=== PATIENT | female | born 1965 | race Caucasian/White ===

== ENCOUNTER → 2019-05-24 13:09 | Outpatient (CLI) | payer BC, SELFPAY ==
[2019-05-28 16:19] LABS: HPV APTIMA, High Risk Negative (Negative)
[2019-05-28 16:20] LABS: HPV Reflexed? YES, CHARGE PATIENT
== END ==
PROVIDERS: Visit Provider Obstetrics & Gynecology
DX: Z12.4 Encounter for screening for malignant neoplasm of cervix (principal)
CPT/HCPCS: 87624; 88175; G0145

== ENCOUNTER → 2019-06-01 09:47 | Outpatient (CLI) | payer BC, SELFPAY ==
[2019-06-01 12:42] LABS: Anion Gap 1 (5-15); BUN 12 mg/dL (7-18); BUN/Creat Ratio 12.9 RATIO (10-20); Calcium,Total 8.7 mg/dL (8.5-10.1); Chloride 106 mmol/L (98-107); Cholesterol 223 mg/dL (200); Creatinine, Serum 0.93 mg/dL (0.55-1.02); EST Glomerular Filtration Rate 67 mL/min (>60); Est Glom Filt Rate - Afr Amer 82 mL/min (>60); Glucose 89 mg/dL (74-106); High Density Lipoprotein 51 mg/dL; Potassium 3.8 mmol/L (3.5-5.1); Sodium Level 140 mmol/L (136-145); Triglycerides 207 mg/dL; Very Low Density Lipoprotein 41 mg/dL (5-40)
== END ==
PROVIDERS: Family Provider Family Medicine; PCP Family Medicine; Referring Provider Family Medicine; Visit Provider Family Medicine
DX: R03.0 Elevated blood-pressure reading, without diagnosis of hypertension (principal)
CPT/HCPCS: 36415; 80048; 80061

== ENCOUNTER → 2019-06-14 13:24 | Outpatient (CLI) | payer BC, SELFPAY ==
--- NOTE | 2019-06-14 13:29 | BI_ITS ---
MAMMOGRAPHY - BILATERAL SCREENING 3-D TOMOSYNTHESIS REASON FOR EXAM: Female, 53 years old. Routine annual screening mammogram. PERTINENT HISTORY: Family history of breast cancer in maternal grandmother at age 75 and great maternal grandmother at age 50. TECHNIQUE: 2-D mammograms and 3-D Tomosynthesis of the breast (s) were performed. CAD was performed. COMPARISON: November 18, 2015, July 21, 2012 FINDINGS: The breast composition is composed of scattered fibroglandular density. Scattered benign calcifications are seen. No dense spiculated masses or suspicious microcalcifications are identified. No architectural distortion is identified. There is no skin thickening or retraction. Stable lymph nodes. There has been no significant change since the prior study. BI/SCREEN MAMM (CAD) W/ELZBIETA BILAT IMPRESSION: No mammographic signs of malignancy. Routine yearly mammograms recommended. ASSESSMENT CATEGORY: BIRADS Category 2: Benign. A letter regarding these results will be sent to the patient by the facility within 30 days. FOLLOW UP RECOMMENDATION: Yearly follow up mammogram recommended. (A) Approximately 10% of breast cancers are not detected by mammography. A normal mammogram should not delay biopsy of a clinically suspicious abnormality. Electronically Signed: Celso Chapman MD at 15:53 EST , Service support ,
== END ==
PROVIDERS: Family Provider Family Medicine; PCP Family Medicine; Referring Provider Obstetrics & Gynecology; Visit Provider Obstetrics & Gynecology
DX: Z12.31 Encounter for screening mammogram for malignant neoplasm of breast (principal)
CPT/HCPCS: 77063; 77067

== ENCOUNTER → 2020-11-03 | Outpatient (CLI) | payer BC, SELFPAY ==
--- NOTE | 2020-11-03 | EMB_PTH ---
PATIENT: JAKE WRIGHT [facility] U#:[id number] AGE/SX: 55/F ROOM: RE11/03/[address]: Dr. Yulia Espinoza MD : 1965 BED: DIS: 11/03/2020 SPEC #: [id number] RECD: 11/03/20 15:49 STATUS: GARY RETravis #: [id number] CHRISTINE: 11/03/20 00:[address]: Yulia Lyons DEPT: SURGICAL PATHOLOGY RECD BY: Rupinder Shaffer ENTERED: 11/04/20 09:53 SP TYPE: ENDOM BX/C KERRI DR: Dr. Unruly Izquierdo MD Tissues: Endometrium, NOS Procedures: Surgery Specimen Level IV HEADER OPERATION: Endometrial biopsy PRE-OP DIAGNOSIS: Postmenopausal bleeding R95.0 TISSUE SUBMITTED: Endometrial biopsy MICROSCOPIC DIAGNOSIS Endometrial biopsy: Strips of benign endometrial epithelium with superficial fragments of inactive to weakly proliferative endometrium. Fragments of benign endocervical mucosa. SJ:hal 11/05/2020 MICROSCOPIC DESCRIPTION Slides are reviewed. GROSS DESCRIPTION Received in fixative is one container labeled with the patient's name and designated EM biopsy. The specimen consists of multiple fragments of hemorrhagic soft tissue that in aggregate measure 2.5 x 0.5 x 0.1 cm. The specimen is totally submitted in one cassette. / KEYANNA:hal 11/04/20 TC:4 CPT: 97324
== END | disposition home or self-care (01) ==
LOC: LABSPEC 14:14
PROVIDERS: Visit Provider Obstetrics & Gynecology
DX: N95.0 Postmenopausal bleeding (principal)
CPT/HCPCS: 88305

== ENCOUNTER → 2020-11-12 15:46 | Outpatient (CLI) | payer BC, SELFPAY ==
--- NOTE | 2020-11-12 16:00 | BI_ITS ---
MAMMOGRAPHY - BILATERAL SCREENING REASON FOR EXAM: Female, 55 years old. Routine annual screening examination. PERTINENT HISTORY: Grandmother with breast cancer. TECHNIQUE: Digital bilateral breast elzbieta (3D mammographic acquisition) in the CC and MLO projections. 2-D mediolateral oblique (MLO) and craniocaudad (CC) views of both breasts were obtained. CAD: Full Field Digital Mammography with Computer Added Detection was performed. COMPARISON: Comparison is made with prior study dated 06/14/2019 and 11/18/2015. FINDINGS: Breast Composition: The breasts are heterogeneously dense, which may obscure small masses. There are no dominant masses or suspicious calcifications. No other significant abnormalities are identified. There has been no significant change since the prior study. BI/SCRN MAMM (CAD)W/ELZBIETA BILAT IMPRESSION: Stable bilateral screening mammogram. Yearly follow-up mammogram recommended. (A) ASSESSMENT CATEGORY: BIRADS Category 1: Negative. A letter regarding these results will be sent to the patient by the facility within 30 days. Approximately 10% of breast cancers are not detected by mammography. A normal mammogram should not delay biopsy of a clinically suspicious abnormality. [id number] Electronically Signed: Ric Jackson MD at 8:24 EDT , Service support ,
== END ==
PROVIDERS: PCP Family Medicine; Referring Provider Obstetrics & Gynecology; Visit Provider Obstetrics & Gynecology
DX: Z12.31 Encounter for screening mammogram for malignant neoplasm of breast (principal)
CPT/HCPCS: 77063; 77067

== ENCOUNTER 2021-02-05 06:05 | Day surgery (SDC) | payer BC, SELFPAY ==
[2021-01-30 11:07] LABS: Hematocrit 43.2 % (37-47); Hemoglobin 14.1 g/dL (12.0-15.0); Mean Corp Hgb Conc 32.6 g/dL (32-36); Mean Corpuscular Hgb 27.4 pg (27.0-32.0); Mean Platelet Vol. 11.1 fl (6.2-12.0); Platelet Count 246 K/mm3 (150-450); RBC Distribution Width CV 12.5 % (11.6-14.6); RBC Distribution Width SD 37.6 fl (35.1-43.9); Red Blood Count 5.14 M/mm3 (4.2-5.4); White Blood Count 5.3 K/mm3 (4.4-11.0)
[2021-01-30 11:15] LABS: International Normalized Ratio 0.9; Prothrombin Time (Protime)PT. 11.9 SECONDS (11.7-14.9)
[2021-02-05] VITALS (7 sets, daily range): BP systolic 115–143; BP diastolic 75–86; PULSE 68–79; RESP 14–16; TEMP 36.1–36.9; O2SAT 95–100; BMI 33.4
[2021-02-05] MEDS: Lactated Ringers 1,000 ML 100 ML IV ×2 (06:43→08:27)
--- NOTE | 2021-02-05 07:03 | PCM.HP.BLA ---
History and Physical Date of Admission: 02/05/21 Surgical History and Physical Date: 02/05/2021 Name: RUBY VASQUEZ Age: 55 Date of : 1965 Ruby Vasquez, a 55 year old female 3 0 0 0 3, presents for Hysteroscopy, dilation and curettage on February 05, 2021 at 9 :00. -- Ruby has a history of recurrent postmenopausal bleeding and is scheduled for the above procedure.[facility] MEDICATIONS HISTORY: None ALLERGIES: NKDA Infections - Chicken pox Illnesses - no serious past illnesses Accidents - no injuries of consequence Hospitalizations - see surgery and Childbirth Review of Systems: GENERAL - Denies fever, or chills SKIN - Denies skin changes EYES - Denies visual changes EARS - Denies difficulty hearing NOSE - Denies nasal congestion or bleeding MOUTH - Denies sore throat or difficulty swallowing NECK - Denies pain or swelling RESPIRATORY - Denies shortness of breath or wheezing CARDIOVASCULAR - Denies palpitations or chest pain GASTROINTESTINAL - Denies nausea, vomiting, diarrhea, constipation GENITOURINARY - Denies dysuria, frequency of urination, incontinence of urine MUSCULOSKELETAL - Denies joint or muscle pain NEUROLOGICAL - Denies localized numbness or weakness PSYCHIATRIC - Denies depression or anxiety ENDOCRINE - Denies heat or cold intolerance, weight loss or gain HEMATO-IMMUNOLOGIC - Denies excesive bleeding with cuts SOCIAL HISTORY: Alcohol Use - occasionally Smoking - denies smoking Diet - no particular diet Seat Belt Use - always 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 Maternal Grandmother: breast cancer. Maternal Grandfather: diabetes. MENSTRUAL HISTORY: LMP Known?- PostmenopausalAmount/Duration - 3 days, LMP - 09/08/15 PAST PREGNANCIES: Total Pregnancies - 3; Full Term Pregnancies - 3; Premature - 0; Abortions, Induced - 0; Abortions, Spontaneous - 0; Ectopics - 0; Multiple Births - 0; Living Children - 3 SURGICAL HISTORY: 1. Tubal 96' ; - 2. Lymph Node removed from L hip ; - swollen, undetermined possible infection---uncle had lymphoma PHYSICAL EXAM BP- 124/100 Sitting, Right arm, large cuff Weight- 214.50856 lbs Height- 65.50 inch BMI:[id number] CONSTITUTIONAL - NAD, well nourished, and well developed SKIN - No rash, lesions, or ulcers HEENT - normocephalic, atraumatic, sclerae anicteric LUNGS - CTA x2 without wheezes, crackles or rales CARDIAC - Regular rate and rhythm without rubs, murmurs, or gallops ABDOMEN - Without hepatosplenomegaly, distention, masses, rebound, or guarding; normal bowel sounds; no hernias EXTREMITIES - No edema or calf tenderness NEUROLOGICAL - normal gait, normal balance, normal motor PSYCHIATRIC - A and O to time, place, person, mood and affect ASSESSMENT/PLAN: 1. Postmenopausal Bleeding Prior US - EM 4.5mm EMB benign, however persistent symptoms Plan for hysteroscopy, dilation and curettage r/o EM hyperplasia Procedural r/b/i/a reviewed NPO @ [place] prior to procedure Consents signed and preop instructions discussed Assessment & Plan Assessment/Plan (1) Postmenopausal bleeding:
--- NOTE | 2021-02-05 07:30 | EMB_PTH ---
PATIENT: JAKE WRIGHT [place] [facility] [place] U[place][id number] AGE/SX: 55/F ROOM: RE02/05/[address]: Dr. Yulia Espinoza MD : 1965 BED: DIS: 02/05/2021 SPEC #: [id number] RECD: 02/05/21 10:43 STATUS: GARY RETravis #: [id number] CHRISTINE: 02/05/21 07:[address]: Yulia Lyons DEPT: SURGICAL PATHOLOGY RECD BY: Winnie Cooper ENTERED: 02/05/21 12:49 SP TYPE: ENDOM BX/C OT DR: Dr. Gisselle Dick MD Tissues: Endometrium, NOS Procedures: Surgery Specimen Level IV HEADER OPERATION: Hysteroscopy, D & C Symphion PRE-OP DIAGNOSIS: Postmenopausal bleeding TISSUE SUBMITTED: Endometrial curettings and polyp MICROSCOPIC DIAGNOSIS Endometrial curettings: Proliferative endometrium. Fragments of benign ecto- and endocervical epithelium. SJ:hal 02/06/2021 COMMENT Please make reference to previous specimen ([id number]) endometrial biopsy with diagnosis of ?strips of benign endometrial epithelium with superficial fragments of inactive to weakly proliferative endometrium.? MICROSCOPIC DESCRIPTION Slides are reviewed. GROSS DESCRIPTION Received in fixative is one container labeled with the patient's name and designated endometrial curettings and polyp. The specimen consists of multiple fragments of hemorrhagic soft tissue that in aggregate measure 1.5 x 0.5 x 0.1 cm. The specimen is totally submitted in one cassette. / KEYANNA:hal 02/05/21 TC:4 CPT: 09721
[2021-02-05] MEDS: Lidocaine 1% (30 ml sdv) 30 ML Vial (08:14)
--- NOTE | 2021-02-05 08:14 | PCM.OPRPT ---
Problems Associated Problem List Diagnoses (1) Endometrial polyp: (2) Postmenopausal bleeding: Report of Operation Date of Procedure: 02/05/21 Pre-Operative Diagnosis: 1. Postmenopausal bleeding Post-Operative Diagnosis: 1. Postmenopausal bleeding 2. Endometrial polyp Surgery/Procedure Performed:: 1. Hysteroscopy 2. polypectomy with Symphion 3. Dilation and curettage Description of Surgical Findings:: Endometrial polyp Surgeon: Yulia Lyons Type of Anesthesia: Local MAC Anesthesiologist: Dani Tilley Specimen's removed: Endometrial curettings Drains: Fluid deficit 400 mL Estimated Blood Loss (mL): 10 Fluids Replaced: 850 ml Description of Procedure: Indications: 55-year-old postmenopausal woman with history of recurrent postmenopausal bleeding presents for scheduled hysteroscopy, dilation and curettage. She previously had office endometrial biopsy demonstrating inactive to weakly proliferative endometrium and an ultrasound showing a 4-1/2 mm endometrial stripe. She is counseled regarding procedural risks, benefits, indications and alternatives and desired to proceed. Informed consent was obtained prior to the procedure. Procedure: Patient was brought to the operating room and spinal was performed. She is placed in the dorsal supine position and induced under MAC. She was repositioned into dorsal lithotomy and examination under anesthesia was performed. The perineum was prepped and draped in sterile fashion with straight catheterization of the bladder performed. A bivalve speculum was placed vaginally and the cervix was injected with 1% lidocaine at the anterior cervical lip. A single-tooth tenaculum was placed at this site. A paracervical block was placed bilaterally with a total of 20 cc of 1% lidocaine injected cervically. The uterus sounded to 7 cm and the cervix was subsequently dilated. Hysteroscopy was performed demonstrating a small apical rounding suggesting bicornuate uterus as well as a lower uterine endometrial polyp just apical to the cervix. I proceeded with hysteroscopic polypectomy using the Symphion device. Sharp curettage was subsequently performed. The procedure was complete and hysteroscope removed. The tenaculum was removed from the cervix and tenaculum site appeared hemostatic. The speculum was removed from the vagina. The patient was repositioned into dorsal supine, awakened and transferred to the recovery room without complication. Sponge counts were correct x2. Complications None Consider TLH or LAVH if hysterectomy indicated. Admit VTE Documentation VTE Present on Admission: No VTE Mechan Device Prophylaxis: SCD's VTE Pharm Prophylaxis ordered?: No
--- NOTE | 2021-02-05 08:48 | PCM.DC ---
Discharge Instructions Diet Discharge Diet: No restrictions Activity May resume sexual activity in: 4 weeks Dressing / Incision Call your doctor if you observe: Fever of 101 or Higher, Using more than 1 pad per hour, Shortness of breath, Chest pain, Calf discomfort and Uncontrolled pain Follow Up Care Please Follow Up With: Yulia Espinoza MD Test Results: Test results from this visit will be discussed in further detail at your follow-up appointment, if applicable. Discharge Plan Admission Primary Reason for Your Visit: Hysteroscopy, dilation and curettage Attending Provider: Yulia Lyons Primary Care Provider: Gisselle Dick Discharge Orders/Prescriptions Prescriptions: No Action multivitamin Tablet 1 tab PO DAILY RF: 0 Referrals / Follow Up: Gisselle Dick MD [Primary Care Provider] - Disposition Disposition (needs filled in before D/C Order can be placed): Home, Self Care
== END 2021-02-05 09:11 | disposition home or self-care (01) ==
LOC: SDC 06:11 → AC 06:11
PROVIDERS: Anesthesiology; PCP Family Medicine; Referring Provider Obstetrics & Gynecology; Visit Provider Obstetrics & Gynecology
PROC: 0UB98ZZ Excision of Uterus, Via Natural or Artificial Opening Endoscopic (ICD-10-PCS; CPT 58558; principal; 2021-02-05 07:15)
DX: N95.0 Postmenopausal bleeding (principal); N84.0 Polyp of corpus uteri; Z80.3 Family history of malignant neoplasm of breast; Z83.3 Family history of diabetes mellitus
CPT/HCPCS: 58558; 36415; 85027; 85610; 85730; 86850; 86900; 86901; 87635; 88305; C9803; J7120; U0005; U0003

== ENCOUNTER → 2023-11-22 | Outpatient (CLI) | payer OTHER, SELFPAY ==
[2023-11-26 13:08] LABS: HPV APTIMA, High Risk Negative (Negative)
== END | disposition home or self-care (01) ==
PROVIDERS: PCP Family Medicine; Referring Provider Nurse Practitioner Women's Health; Visit Provider Nurse Practitioner Women's Health
DX: Z12.4 Encounter for screening for malignant neoplasm of cervix (principal)
CPT/HCPCS: 87624; 88175; G0145

== ENCOUNTER → 2023-12-20 | Outpatient (CLI) | payer OTHER, SELFPAY ==
--- NOTE | 2023-12-20 10:58 | BI_ITS ---
MAMMOGRAPHY - BILATERAL SCREENING 3-D TOMOSYNTHESIS REASON FOR EXAM: Female, 58 years old. Screening for breast cancer PERTINENT HISTORY: No significant family history. TECHNIQUE: 2-D mammograms and 3-D Tomosynthesis of the breast (s) were performed. CAD was performed. COMPARISON: 11/12/2020 FINDINGS: The breast composition is Extermely dense tissue. Scattered benign calcifications are seen. No dense spiculated masses or suspicious microcalcifications are identified. No architectural distortion is identified. There is no skin thickening or retraction. There has been no significant change since the prior study. BI/SCRN MAMM (CAD)W/ELZBIETA BILAT IMPRESSION: No mammographic signs of malignancy. Routine yearly mammograms recommended. ASSESSMENT CATEGORY: BIRADS Category 1: Negative. A letter regarding these results will be sent to the patient by the facility within 30 days. FOLLOW UP RECOMMENDATION: Yearly follow up mammogram recommended. (A) Approximately 10% of breast cancers are not detected by mammography. A normal mammogram should not delay biopsy of a clinically suspicious abnormality. Electronically Signed: Adelso Pineda MD at 19:05 EDT ,
== END | disposition home or self-care (01) ==
LOC: OPBI 10:58
PROVIDERS: PCP Family Medicine; Referring Provider Nurse Practitioner Women's Health; Visit Provider Nurse Practitioner Women's Health
DX: Z12.31 Encounter for screening mammogram for malignant neoplasm of breast (principal)
CPT/HCPCS: 77063; 77067

== ENCOUNTER 2024-05-14 08:11 | Day surgery (SDC) | payer OTHER, SELFPAY ==
[2024-05-14] VITALS (7 sets, daily range): BP systolic 114–141; BP diastolic 62–69; PULSE 71–93; RESP 16; TEMP 36.1–36.2; O2SAT 96–100; BMI 34.5
--- NOTE | 2024-05-14 08:35 | PCM.HP.STD ---
[facility] - General General Date of Admission: 05/14/24 Date of Service: 05/14/24 Chief Complaint: Screening colonoscopy [facility] Narrative JAKE WRIGHT, is a 58 F who presents today for screening colonoscopy. She has never had a colonoscopy in the past she has a positive family history of colon cancer in her brother. [facility] Medical History Family history of malignant neoplasm of colon in first degree relative diagnosed when younger than 60 years of age Endometrial polyp Postmenopausal bleeding Wears glasses Post-menopausal MRSA infection Bite from insect Arthritis Non-smoker Chronic cough Home Medications ?Medication ?Instructions ?Recorded ?Last Taken ?Type multivitamin 1 tab PO DAILY 01/29/21 Unknown History lactobacillus combination no.9 4 4,000 mmu cells PO DAILY 11/22/23 Unknown History billion cell capsule (Adult 50 Plus Probiotic) omega-3 fatty acids-fish oil 360 1 cap PO QDAY 03/16/24 Unknown History mg-1,200 mg capsule (Fish Oil) Allergy/AdvReac Type Severity Reaction Status Date / Time No Known Allergies Allergy Verified 05/11/24 10:09 Family History (Updated 03/16/24 @ 12:00 by Violeta Cottrell) Grandmother Breast cancer Father Cancer Pancreatic Uncle Cancer Non-Hodgkin's lymphoma Brother Colon cancer, Onset Age: 57 Surgical History (Updated 05/11/24 @ 10:14 by Solange Huang) History of D&C History of tubal ligation Social History household members: spouse current occupational status: employed current occupation: [employer] Smoking Status: Never smoker alcohol intake: current alcohol intake frequency: holidays/special occasions only substance use type: does not use additional social history: - Juwan[employer] ROS Review of Systems ROS Unobtainable: other Constitutional Constitutional: Denies fatigue, fever(s), poor appetite, weight gain or weight loss ENT HEENT: Denies mouth lesions Cardiovascular Cardiovascular: Denies abdominal bloating, abdominal edema or abdominal pain Respiratory/Chest Respiratory/Chest: Denies change in mental status, change in phlegm color, chest congestion or chest tightness Gastrointestinal Gastrointestinal: Denies belching, bloating, change in bowel habits, change in stool character, chewing difficulty, coffee ground emesis, constipation, cramping, diarrhea, dyspepsia, dysphagia, early satiety, excessive flatus, fecal incontinence, heartburn, hematemesis, hematochezia, hemorrhoids, loose stools, melena, nausea, odynophagia, rectal bleeding, tenesmus, vomiting or weight changes Genitourinary Genitourinary: Denies abdominal discomfort, burning urination or itching Musculoskeletal Musculoskeletal: Reports as per HPI; Denies muscle weakness or myalgias Integumentary Integumentary: Denies jaundice Neurologic Neurologic: Denies lack of coordination or weakness Psychiatric Psychiatric: Denies confusion, depression, memory loss, mood swings, paranoia or suicidal ideation Endocrine Endocrinology: Denies systems reviewed and no addt'l complaints, except as documented Hematologic/Lymphatic Hematologic/Lymphatic: Denies anemia, easy bleeding, easy bruising or lymphadenopathy Allergic/Immunologic Allergic/Immunologic: Denies systems reviewed and no addt'l complaints, except as documented Physical Exam Const alert General Appearance: cooperative Orientation / Consciousness: oriented to person HEENT hearing grossly normal bilaterally Head and Scalp: normal to inspection Face and Sinus: face symmetric Nose: external nose normal Mouth: oral and palatal mucosa normal Eyes conjunctivae normal General Eye: normal appearance of both eyes Neck full ROM General: normal visual inspection Lymph Lymphatic: no lymphadenopathy noted Chest inspection of chest normal and palpation of chest normal Chest: symmetrical chest wall rise Resp normal respiratory effort Effort and Inspection: able to speak in complete sentences Cardio regular rate GI non-distended Percussion: normal to percussion Rectal Exam: deferred Neuro Speech: speech normal Gait (Neuro): normal gait Assessment & Plan Assessment/Plan (1) Encounter for screening for malignant neoplasm of colon: PLAN: She was explained alternatives, risk, benefits include not withstanding bleeding, infection, sepsis, perforation, need for emergent urgent . She will have an ASA of 3.
--- NOTE | 2024-05-14 08:44 | PRE.ANES_ITS ---
ASA Classification* ASA Classification ASA Classification: 2 Assessment & Plan Anesthesia* Anesthesia Assessment Anesthesia Assessment: Discussed sedation and/or anesthesia options, risks, benefits, and alternatives with patient/parents/legal guardian/POA. Questions invited. The patient/parents/legal guardian/POA seems to understand and agrees to proceed with anesthesia plan. Reviewed the physical assessment, medical history, allergy history and patient home medications list prior to surgery/procedure/anesthetic and documented any changes. Performed airway and anesthesia risk assessments. Anesthesia Type Anesthesia Type: MAC Anesthesia Focused Assessment* Airway Assessment Mouth opens: >3 cm Mallampati Score: II Focused Labs Anesthesia Preop lab: CBC WBC 5.3 K/mm3 (4.4-11.0) 01/30/21 10:38 RBC 5.14 M/mm3 (4.2-5.4) 01/30/21 10:38 Hgb 14.1 g/dL (12.0-15.0) 01/30/21 10:38 Hct 43.2 % (37-47) 01/30/21 10:38 Plt Count 246 K/mm3 (150-450) 01/30/21 10:38 CHEMISTRY Potassium 3.8 mmol/L (3.5-5.1) 06/01/19 09:48 Sodium 140 mmol/L (136-145) 06/01/19 09:48 BUN 12 mg/dL (7-18) 06/01/19 09:48 Creatinine 0.93 mg/dL (0.55-1.02) 06/01/19 09:48 Glucose 89 mg/dL (74-106) 06/01/19 09:48 TSH 1.86 uIU/mL (0.358-3.74) 11/07/15 13:04 COAG PT 11.9 SECONDS (11.7-14.9) 01/30/21 10:38 HCG, Quant 2 mIU/mL (<9 non-preg) 11/07/15 13:04 Pre-Assessment Diagnosis/Proposed Procedure Planned Operative Procedure(s): CSCOPE Anesthesia History Anesthesia History - software requirements engineer: Anesthesia History - software requirements engineer Hx Hospitalization No 05/11/24 10:10 Any Problems With Anesthesia No 05/11/24 10:10 Cholinesterase deficiency No 05/11/24 10:10 You/Your Family Experience No 05/11/24 10:10 fever (hyperthermia) with Relationship Recent Exposure to Contagious No 02/05/21 06:36 Disease Does patient have nerve No 05/11/24 10:10 stimulator Patient instructed to have device shut off --Does patient have Pacemaker or ICD? When Was Last Pacemaker Check QUESTION #4 FULL TEXT: You/Your Family Experience fever (hyperthermia) with Anesthesia Last Oral Intake Last Oral intake: Last Oral Intake NPO since Meds taken in AM with sips of water? Meds patient instructed to take am of surgery PONV PONV - software requirements engineer: PONV - software requirements engineer Female Yes 05/11/24 10:10 HX of Motion Sickness No 05/11/24 10:10 HX of N/V After Surgery No 05/11/24 10:10 Non-Smoker Yes 05/11/24 10:10 Duration of Surgery greater No 05/11/24 10:10 than 60 minutes Number of Risk Factors 2 05/11/24 10:10 PONV Score Moderate Risk 05/11/24 10:10 Height & Weight Height & Weight: Anesthesia: Height & Weight Height 5 ft 7 in 11/22/23 14:35 Respiratory Assessment Respiratory Assessment - software requirements engineer: Respiratory Tract Infection Hx - software requirements engineer Hx Respiratory Tract Infection No 05/11/24 10:10 STOP Sleep Apnea STOP Sleep Apnea - software requirements engineer: STOP Sleep Apnea - software requirements engineer Hx Hypertension 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 Has anyone observed you stop No 05/11/24 10:10 breathing during sleep? STOP Results Negative 05/11/24 10:10 QUESTION #5 FULL TEXT : Do you snore loudly (louder than talking or can be heard through closed doors)? Tobacco Use History Tobacco Use History - software requirements engineer: Tobacco Use History - software requirements engineer Tobacco Use Smoking Status Never smoker 05/11/24 10:10 Hx Tobacco Use No 05/11/24 10:10 Years Smoking Packs Smoked per Day Smoking Cessation Date was within the last 15 years Hx Smoking Cessation Date Hx Smoking Cessation Counseling Hematologic Medial History Hematologic Hx - software requirements engineer: Hematologic Medical Hx - barrow worker helper Hx of Blood Transfusion No 05/11/24 10:10 Hx of Transfusion in last 3 No 05/11/24 10:10 Months Date of Last Transfusion (if within last 3 months) Ever experience any problems No 05/11/24 10:10 with transfusion(s)? Specify any problems Hx of Preganancy in last 3 N/A 05/11/24 10:10 Months Nurse Filling Out Transfusion NBUCHER 05/11/24 10:10 & Questions: Date: 05/11/24 05/11/24 10:10 Time: 10:11 05/11/24 10:10 Patient unable to answer at this time (ie. confused, unrespo /Reproduction History /Reproductive History - software requirements engineer: /Reproductive Hx- software requirements engineer Hx Now Gestational Age (in weeks): EDC: Hx Hx Para Hx Section SAB No 05/11/24 10:10 PFSH Medical History Family history of malignant neoplasm of colon in first degree relative diagnosed when younger than 60 years of age Endometrial polyp Postmenopausal bleeding Wears glasses Post-menopausal MRSA infection Bite from insect Arthritis Non-smoker Chronic cough Home Medications ?Medication ?Instructions ?Recorded ?Last Taken ?Type multivitamin 1 tab PO DAILY 01/29/21 Unknown History lactobacillus combination no.9 4 4,000 mmu cells PO DAILY 11/22/23 Unknown History billion cell capsule (Adult 50 Plus Probiotic) omega-3 fatty acids-fish oil 360 1 cap PO QDAY 03/16/24 Unknown History mg-1,200 mg capsule (Fish Oil) Allergy/AdvReac Type Severity Reaction Status Date / Time No Known Allergies Allergy Verified 05/11/24 10:09 Family History Grandmother Breast cancer Father Cancer Pancreatic Uncle Cancer Non-Hodgkin's lymphoma Brother Colon cancer, Onset Age: 57 Surgical History History of D&C History of tubal ligation Social History household members: spouse current occupational status: employed current occupation: [employer] Smoking Status: Never smoker alcohol intake: current alcohol intake frequency: holidays/special occasions only substance use type: does not use additional social history: - [employer] Review of Systems (Anesthesia) ROS Narrative System reviewed and no additional complaints, except as documented.
--- NOTE | 2024-05-14 09:30 | COLBX_PTH ---
PATIENT: JAKE WRIGHT LOC: EN U#:[id number] AGE/SX: 58/F ROOM: RE05/14/[address]: Dr. Charles Moreland DO : 1965 BED: DIS: 05/14/2024 SPEC #: [id number] RECD: 05/14/24 13:06 STATUS: GARY AMARI #: [id number] CHRISTINE: 05/14/24 09:[address]: Charles Moreland DEPT: SURGICAL PATHOLOGY RECD BY: Winnie Cooper ENTERED: 05/14/24 13:44 SP TYPE: COLON BX KERRI DR: Dr. Gisselle Dick MD Tissues: A - Ileum, NOS B - COLON BIOPSY Procedures: Surgery Specimen Level IV HEADER OPERATION: Colonoscopy with biopsy PRE-OP DIAGNOSIS: Encounter for screening for malignant neoplasm of colon TISSUE SUBMITTED: A- Terminal ileum biopsy, B- Splenic flexure polyp biopsy MICROSCOPIC DIAGNOSIS A. Terminal ileum, biopsy: Acute enteritis, mild. B. Colonic polyp at splenic flexure, biopsy: Hyperplastic polyp. AM. 05/15/2024 MICROSCOPIC DESCRIPTION Slides are reviewed. GROSS DESCRIPTION A. Received in fixative is one container labeled with the patient's name and designated Terminal ileum biopsy. The specimen consists of three irregular fragments of light cook soft tissue that in aggregate measure 1.0 x 0.6 x 0.1 cm. The specimen is totally submitted in one cassette. B. Received in fixative is one container labeled with the patient's name and designated Splenic flexure polyp. The specimen consists of one irregular fragment of light cook soft tissue that measures 0.2 x 0.2 x 0.1 cm. The specimen is totally submitted in one cassette. AM. 05/14/2024 TC:[id number]
--- NOTE | 2024-05-14 09:33 | OP.CCLET_ITS ---
05/14/2024 Gisselle Dick [address] [place] [address] Re : Colonoscopy procedure for Ruby Vasquez Dear Dr. Dick This procedure was performed on Tuesday, May 14, 2024. My impressions and recommendations are as follows: Impressions : - One 5 mm polyp at the hepatic flexure, removed with a jumbo cold forceps. Resected and retrieved. Biopsied. - Diverticulosis in the recto-sigmoid colon and in the sigmoid colon. - Moderate inflammation was found in the ileum secondary to ileitis. Biopsied. - The examination was otherwise normal on direct and retroflexion views. Recommendations : - Discharge patient to home. - Resume previous diet. - Continue present medications. - Await pathology results. - Repeat colonoscopy in 5 years for surveillance. My findings are described in the full procedure note, which is enclosed. If I can be of further assistance, please feel free to contact me at . Sincerely, Charles Moreland DO 05/14/2024 9:32:39 AM This report has been signed electronically.
--- NOTE | 2024-05-14 09:33 | OP.COLON_ITS ---
Patient Name: Ruby Vasquez Procedure Date: 05/14/2024 9:04 AM Date of : 1965 Age: 58 Procedure: Colonoscopy Indications: Screening for colorectal malignant neoplasm, Screening in patient at increased risk: Family history of 1st-degree relative with colorectal cancer before age 60 years Providers: Charles Moreland DO Referring MD: Gisselle Dick Medicines: Monitored Anesthesia Care Patient Profile: This is a 58 year old female. Refer to note in patient chart for documentation of history and physical. Last Colonoscopy: none. The patient's first colonoscopy is today. Complications: No immediate complications. Procedure: Pre-Anesthesia Assessment: - Prior to the procedure, a History and Physical was performed, and patient medications and allergies were reviewed. The patient is competent. The risks and benefits of the procedure and the sedation options and risks were discussed with the patient. All questions were answered and informed consent was obtained. Patient identification and proposed procedure were verified by the physician in the pre-procedure area. Mental Status Examination: alert and oriented. Airway Examination: normal oropharyngeal airway and neck mobility. Respiratory Examination: clear to auscultation. CV Examination: normal. Prophylactic Antibiotics: The patient does not require prophylactic antibiotics. Prior Anticoagulants: The patient has taken no anticoagulant or antiplatelet agents except for NSAID medication. ASA Grade Assessment: III - A patient with severe systemic disease. After reviewing the risks and benefits, the patient was deemed in satisfactory condition to undergo the procedure. The anesthesia plan was to use monitored anesthesia care (MAC). Immediately prior to administration of medications, the patient was re-assessed for adequacy to receive sedatives. The heart rate, respiratory rate, oxygen saturations, blood pressure, adequacy of pulmonary ventilation, and response to care were monitored throughout the procedure. The physical status of the patient was re-assessed after the procedure. After I obtained informed consent, the scope was passed under direct vision. Throughout the procedure, the patient's blood pressure, pulse, and oxygen saturations were monitored continuously. The Colonoscope was introduced through the anus and advanced to the terminal ileum. The colonoscopy was performed without difficulty. The patient tolerated the procedure well. The quality of the bowel preparation was adequate. The terminal ileum, ileocecal valve, appendiceal orifice, and rectum were photographed. Scope In: 9:14:48 AM Scope Withdrawal Time 0 hours 8 minutes 20 seconds Scope Out: 9:26:15 AM Total Procedure Duration Time 0 hours 11 minutes 27 seconds Findings: The perianal and digital rectal examinations were normal. A 5 mm polyp was found in the hepatic flexure. The polyp was sessile. The polyp was removed with a jumbo cold forceps. Resection and retrieval were complete. Biopsies were taken with a cold forceps for histology. Verification of patient identification for the specimen was done. Estimated blood loss was minimal. A few small-mouthed diverticula were found in the recto-sigmoid colon and sigmoid colon. Patchy moderate inflammation characterized by erosions, erythema and aphthous ulcerations was found in the terminal ileum. Biopsies were taken with a cold forceps for histology. Verification of patient identification for the specimen was done. Estimated blood loss was minimal. The exam was otherwise without abnormality on direct and retroflexion views. Impression: - One 5 mm polyp at the hepatic flexure, removed with a jumbo cold forceps. Resected and retrieved. Biopsied. - Diverticulosis in the recto-sigmoid colon and in the sigmoid colon. - Moderate inflammation was found in the ileum secondary to ileitis. Biopsied. - The examination was otherwise normal on direct and retroflexion views. Recommendation: - Discharge patient to home. - Resume previous diet. - Continue present medications. - Await pathology results. - Repeat colonoscopy in 5 years for surveillance. Procedure Code(s): --- Professional --- 19579, Colonoscopy, flexible; with biopsy, single or multiple CPT copyright 2021 [employer]. All rights reserved. The codes documented in this report are preliminary and upon retread technician review may be revised to meet current compliance requirements. Charles Moreland DO 05/14/2024 9:32:39 AM This report has been signed electronically. Number of Addenda: 0 Note Initiated On: 05/14/2024 9:04 AM
--- NOTE | 2024-05-14 09:45 | PCM.POST.ANE ---
Anesthesia: Postop Eval I Current Vital Signs Temperature: 97.1 F Pulse Rate: 71 Blood Pressure: 119/68 Respiratory Rate: 16 Pulse Ox: 98 Assessment Airway patent: Yes Spontaneous unlabored respirations: Yes nausea: No Vomiting: No Anesthesia Complication: No Fluid Hydration Crystalloid volume administer (ml): 10 Total IV fluid infused: 10 Progress Note Anesthesia document: Postop Eval 1 completed: Yes
--- NOTE | 2024-05-14 14:19 | PCM.POSTANE2 ---
Anesthesia Postop Eval I Sum Postop Eval Completion status Anesthesia document: Postop Eval 1 completed: Yes Anesthesia Postop Eval I Summary Anesthesia Postop Eval I Summary: Anesthesia Postop Eval I: Assessment Summary Airway patent Yes 05/14/24 14:19 Spontaneous unlabored Yes 05/14/24 14:19 respirations Mental status nausea No 05/14/24 14:19 Vomiting No 05/14/24 14:19 Anesthesia Postop Eval I: Fluid Summary Crystalloid volume administer 10 05/14/24 14:19 (ml) Colloids volume administered ( ml) Blood Product volume administered (ml) Total IV fluid infused 10 05/14/24 14:19 Anesthesia Postop Eval I: Summary Notes Anesthesia Complication No 05/14/24 14:19 Anesthesia Complication Comment: Post-operative progress note Anesthesia: Postop Eval II Evaluation Mental status: Awake Pain Level: 0 nausea: No Vomiting: No
== END 2024-05-14 10:22 | disposition home or self-care (01) ==
LOC: EN 08:12 → AC 08:13
PROVIDERS: PCP Family Medicine; Referring Provider Family Medicine; Visit Provider Internal Medicine Gastroenterology
PROC: 0DJD8ZZ Inspection of Lower Intestinal Tract, Via Natural or Artificial Opening Endoscopic (ICD-10-PCS; CPT 45378; principal; 2024-05-14 09:25)
DX: Z12.11 Encounter for screening for malignant neoplasm of colon (principal); K63.5 Polyp of colon; K52.9 Noninfective gastroenteritis and colitis, unspecified; K57.30 Diverticulosis of large intestine without perforation or abscess without bleeding; Z80.0 Family history of malignant neoplasm of digestive organs
CPT/HCPCS: 45380; 88305; A4216; J2405

== ENCOUNTER → 2024-06-04 | Outpatient (CLI) | payer OTHER, SELFPAY ==
[2024-06-04 15:38] LABS: Erythrocyte Sedimentation Rate 9 mm/hr (0-30)
[2024-06-04 15:54] LABS: CRP 3.68 mg/L (0.0-3.0); LDH 241 U/L (84-246)
[2024-06-06 12:08] LABS: Anti-Centromere B Ab <0.2 AI (0.0-0.9); Anti-Chromatin <0.2 AI (0.0-0.9); Anti-Jo <0.2 AI (0.0-0.9); Anti-Scleroderma-70 AB <0.2 AI (0.0-0.9); Anti-dsDNA Ab <1 IU/mL (0-9); RNP Ab <0.2 AI (0.0-0.9); SJOGREN'S Anti-SS-A test < 0.2 AI (0.0-0.9); SJOGREN'S Anti-SS-B test < 0.2 AI (0.0-0.9); Smith Ab <0.2 AI (0.0-0.9)
[2024-06-09 00:07] LABS: ACCA 9 units (0-90); ALCA 10 units (0-60); AMCA 69 units (0-100); Cytoplasmic Ab (C-ANCA) <1:20 titer (Neg:<1:20); Immunoglobulin A 369 mg/dL (87-352); Immunoglobulin E 12 IU/mL (6-495); Immunoglobulin G 1210 mg/dL (586-1602); Immunoglobulin M 82 mg/dL (26-217); Perinuclear Ab (P-ANCA) <1:20 titer (Neg:<1:20); gASCA 3 units (0-50)
== END | disposition home or self-care (01) ==
LOC: LAB 14:19
PROVIDERS: PCP Family Medicine; Referring Provider Internal Medicine Gastroenterology; Visit Provider Internal Medicine Gastroenterology
DX: K52.9 Noninfective gastroenteritis and colitis, unspecified (principal)
CPT/HCPCS: 36415; 82784; 82785; 83516; 83615; 85652; 86036; 86037; 86140; 86225; 86235; 86671